=== PATIENT | male | born 1995 | race Two or more races ===

== ENCOUNTER 2016-04-27 06:24 | Emergency (ER) | payer BC ==
--- NOTE | 2016-04-27 07:29 | ER Document Report ---
HPI - HPI Patient complains to provider of: sore throat Pain Level: 3 Context: Patient is a 20-year-old male presents to the emergency department with sudden onset of sore throat and swollen uvula. Patient states that he was able to sleep last night but woke up this morning feeling like he was gagging. Patient states that he with the sternum and felt like his uvula is large than normal also states sore throat. Denies any difficulty breathing, chest pain, shortness of breath, wheezing, cough. Denies any previous cold symptoms throughout the week. Has had 6 exposure work. Did receive a flu shot this year. Past medical history significant to asthma and obstructive sleep apnea Social history denies any alcohol or drug use. Rare tobacco use PCP; Brett ANNE Skin Color: Normal Past Medical History - Social History Smoking Status: Current Some Day Smoker Chew tobacco use (# tins/day): No Frequency of alcohol use: None Drug Abuse: None Family History: Reviewed & Not Pertinent Patient has suicidal ideation: No Patient has homicidal ideation: No Renal/ Medical History: Denies: Hx Peritoneal Dialysis Vertical Provider Document - CONSTITUTIONAL Agree With Documented VS: Yes Exam Limitations: No Limitations General Appearance: WD/WN, No Apparent Distress - INFECTION CONTROL TRAVEL OUTSIDE OF THE [place] IN LAST 30 DAYS: No - HEENT HEENT: Atraumatic, Normocephalic, PERRLA. negative: Pharyngeal Exudate, Pharyngeal Tenderness, Pharyngeal Erythema, Tympanic Membrane Red, Tympanic Membrane Bulging Mouth Diagram: 1 - enlarged uvula Notes: No evidence of retropharyngeal or peritonsillar abscess. - NECK Neck: Normal Inspection. negative: Lymphadenopathy-Left, Lymphadenopathy-Right - RESPIRATORY Respiratory: Breath Sounds Normal, No Respiratory Distress, Chest Non-Tender. negative: Rales, Rhonchi, Wheezing O2 Sat by Pulse Oximetry: 97 - CARDIOVASCULAR Cardiovascular: Regular Rate, Regular Rhythm, No Murmur Pulses: Normal: Radial - GI/ABDOMEN Gastrointestinal: Abdomen Soft, Abdomen Non-Tender, No Organomegaly, Normal Bowel Sounds - MUSCULOSKELETAL/EXTREMETIES Musculoskeletal/Extremeties: MAEW, FROM, Non-Tender, No Edema. negative: Eccymosis - NEURO Level of Consciousness: Awake, Alert, Appropriate Motor/Sensory: No Motor Deficit, No Sensory Deficit - DERM Integumentary: Warm, Dry, No Rash Course - Re-evaluation Re-evalutation: 04/27/16 08:17 Patient is a 20-year-old male who presents emergency departments with throat and enlarged uvula. Patient is hemodynamically stable, no acute distress and afebrile. Soft tissue of the neck does not reveal any concern for epiglottitis. Patient's airway is patent no evidence of respiratory distress. Rapid strep is negative. Patient will be discharged home to follow-up with PCP - Vital Signs Vital signs: Temp Pulse Resp BP Pulse Ox 98.0 F 73 16 126/73 H 97 04/27/16 06:27 04/27/16 06:27 04/27/16 06:27 04/27/16 06:27 04/27/16 06:27 Discharge - Discharge Clinical Impression: Uvular swelling Condition: Good Disposition: HOME, SELF-CARE Instructions: Sore Throat ([facility]), Viral Syndrome ([facility]) Additional Instructions: Follow up with Dr. West as needed Forms: Return to Work
[2016-04-27 08:57] VITALS: BP 120/70
== END 2016-04-27 08:50 | disposition home or self-care (01) ==
LOC: ER 06:24
DX: R22.1 Localized swelling, mass and lump, neck (principal); J02.9 Acute pharyngitis, unspecified; F17.200 Nicotine dependence, unspecified, uncomplicated
CPT/HCPCS: 70360; 87070; 87880; 99283

== ENCOUNTER 2016-06-15 20:26 | Emergency (ER) | payer BC ==
[2016-06-15] MEDS ORDERED: IPRATROPIUM/ALBUTEROL 0.5-2.5 MG/3 ML AMPUL NEB ONE (20:35)
[2016-06-15] MEDS ORDERED: PREDNISONE 20 MG TABLET PO ONE (20:35)
[2016-06-15] MEDS: ALBUTEROL SULFATE 0.083% NEB 2.5 MG/3 ML AMPUL NEB SCH ×2 (21:07→22:10)
--- NOTE | 2016-06-15 22:34 | ER Document Report ---
ED Respiratory Problem - General Chief Complaint: Breathing Difficulty Stated Complaint: HARD TIME BREATHING,CHEST PAIN Notes: The patient is a 20-year-old male, past medical history asthma, current smoker, presents with 1 day of wheezing and mild shortness of breath. He does not have any albuterol Nebules at home. His last asthma exacerbation was several years ago. He denies chest pain, fevers, leg swelling, hemoptysis, back pain, nausea , vomiting or abdominal pain. TRAVEL OUTSIDE OF THE [place] IN LAST 30 DAYS: No - Related Data Allergies/Adverse Reactions: No Known Allergies Allergy (Verified 06/15/16 20:34) Past Medical History - General Information source: Patient - Social History Smoking Status: Current Every Day Smoker Family History: Reviewed & Not Pertinent Patient has suicidal ideation: No Patient has homicidal ideation: No Renal/ Medical History: Denies: Hx Peritoneal Dialysis Review of Systems - Review of Systems Notes: REVIEW OF SYSTEMS: CONSTITUTIONAL: -fevers, -chills EENT: -eye pain, -difficulty swallowing, -nasal congestion CARDIOVASCULAR:-chest pain, -syncope. RESPIRATORY: -cough, +SOB GASTROINTESTINAL: -abdominal pain, - nausea, -vomiting, -diarrhea GENITOURINARY: -dysuria, -hematuria MUSCULOSKELETAL: -back pain, -neck pain SKIN: -rash or skin lesions. HEMATOLOGIC: -easy bruising or bleeding. LYMPHATIC: -swollen, enlarged glands. NEUROLOGICAL: -altered mental status or loss of consciousness, -headache, - neurologic symptoms PSYCHIATRIC: -anxiety, -depression. ALL OTHER SYSTEMS REVIEWED AND NEGATIVE. Physical Exam - Vital signs Vitals: Temp Pulse Resp BP Pulse Ox 98.7 F 83 20 137/70 H 99 06/15/16 20:32 06/15/16 20:32 06/15/16 20:32 06/15/16 20:32 06/15/16 20:32 - Notes Notes: PHYSICAL EXAMINATION: GENERAL: Well-appearing, well-nourished and in no acute distress. HEAD: Atraumatic, normocephalic. EYES: Pupils equal round and reactive to light, extraocular movements intact, sclera anicteric, conjunctiva are normal. ENT: nares patent, oropharynx clear without exudates. Moist mucous membranes. NECK: Normal range of motion, supple without lymphadenopathy LUNGS: Breath sounds clear to auscultation bilaterally and equal. No wheezes rales or rhonchi. HEART: Regular rate and rhythm without murmurs ABDOMEN: Soft, nontender, normoactive bowel sounds. No guarding, no rebound. No masses appreciated. EXTREMITIES: Normal range of motion, no pitting or edema. No cyanosis. NEUROLOGICAL: Cranial nerves grossly intact. Normal speech, normal gait. Normal sensory, motor, and reflex exams. PSYCH: Normal mood, normal affect. SKIN: Warm, Dry, normal turgor, no rashes or lesions noted. Course - Re-evaluation Re-evalutation: After DuoNeb and steroids, patient feels much better and he is no longer short of breath. His lungs are completely clear and he is in no respiratory distress. Will send home patient with 4 more days of prednisone and a refill of his albuterol nebules with follow-up at his primary care physician. Given strict return precautions and he understands. - Vital Signs Vital signs: Temp Pulse Resp BP Pulse Ox 98.7 F 83 16 152/75 H 99 06/15/16 20:33 06/15/16 23:01 06/15/16 23:01 06/15/16 23:01 06/15/16 23:01 Discharge - Discharge Clinical Impression: Asthma exacerbation, mild Condition: Good Disposition: HOME, SELF-CARE Additional Instructions: ASTHMA: You have been diagnosed as having asthma. This is a condition where there is episodic tightness in the bronchial tubes. Allergies, infections, and polluted or cold air may be contributing factors. Emergency treatment of a severe asthma attack may include adrenaline shots , or bronchodilator aerosol. You may feel lightheaded, have a decreased exercise tolerance and a rapid pulse for an hour or two. Rest and get plenty of fluids. Home treatment of asthma requires bronchodilator drugs. These can be administered by injection, inhalation, or by mouth. Antibiotics and corticosteroids may be required for some patients. You should avoid chemical fumes, dusts, pollens, and exercising in very cold or dry air. If you smoke, stop!! If you develop a fever, increased wheezing, chest pain, or severe shortness of breath, you should contact the doctor immediately. STEROID MEDICATION: You have been given an injection of or oral medicine of the cortisone/ steroid class. This medication is used to control inflammation or allergy. Jani t is usually only given for a short period of time, until the acute process subsides. There are usually no side effects from short-term use of cortisone-like medications. Some persons feel an increased sense of well-being and are not sleepy at bedtime. Long-term use of cortisone medications is best avoided, unless required for a severe condition. If your condition does not remit, or relapses after the course of corticosteroid medication, you should consult your physician. INHALED BRONCHODILATORS: You have received treatment(s) of and/or prescription for an inhaled bronchodilator -- a medication which stimulates the airways in the lung to dilate. This improves the flow of air in asthma, bronchitis, and emphysema. These medicines have some similarity to adrenaline, and can cause similar side effects: shakiness, racing heart, and a sense of nervousness. These side effects decrease with time. Contact your doctor if these side effects are severe. Do not over-use the medicine. Too-frequent use of the inhaler may make it ineffective. Call your doctor if the inhaler is not controlling your symptoms at the prescribed doses. SMOKING: If you smoke, you should stop smoking. The tar and chemicals in cigarette smoke are harmful. Smoking has been shown to cause: emphysema chronic bronchitis lung cancer mouth and throat cancer stomach and pancreas cancer premature aging defects In addition, smoking increases ear and lung infections in children of smokers. USE OF ACETAMINOPHEN (Tylenol): Acetaminophen may be taken for pain relief or fever control. It's much safer than aspirin, offering a wider range of "safe" dosages. It is safe during . Some brand names are Tylenol, Panadol, Datril, Anacin 3, Tempra, and Liquiprin. Acetaminophen can be repeated every four hours. The following are maximum recommended dosages: WEIGHT Dose Drops Elixir Chewable( 80mg) (LBS.) drprs=droppers tsp=teaspoon 6 40 mg 0.4 ml (1/2) 6-11 80 mg 0.8 ml (full) tsp 1 tab 12-16 120 mg 1 1/2 drprs 3/4 tsp 1 1/2 tabs 17-23 160 mg 2 drprs 1 tsp 2 tabs 24-30 240 mg 3 drprs 1 1/2 tsp 3 tabs 30-35 320 mg 2 tsp 4 tabs 36-41 360 mg 2 1/4 tsp 4 1/2 tabs 42-47 400 mg 2 1/2 tsp 5 tabs 48-53 480 mg 3 tsp 6 tabs 54-59 520 mg 3 1/4 tsp 6 1/2 tabs 60-64 560 mg 3 1/2 tsp 7 tabs 65-70 600 mg 3 3/4 tsp 7 1/2 tabs 71-76 640 mg 4 tsp 8 tabs 77-82 720 mg 4 1/2 tsp 9 tabs 83-88 800 mg 5 tsp 10 tabs >89 pounds or adults 650 mg to 900 mg Acetaminophen can be repeated every four hours. Maximum dose not to exceed 4000 mg a day. These maximum recommended dosages are slightly higher than the dosages written on the product container, but these dosages are very safe and below the toxic dosage for acetaminophen. FOLLOW-UP CARE: If you have been referred to a physician for follow-up care, call the physician s office for an appointment as you were instructed or within the next two days. If you experience worsening or a significant change in your symptoms, notify the physician immediately or return to the Emergency Department at any time for re-evaluation. Prescriptions: Albuterol Sulfate [Albuterol Sulfate 2.5mg/3 mL] 1 vial IH Q4 PRN #30 vial PRN Reason: Prednisone [Deltasone 20 mg Tablet] 3 tab PO DAILY 4 Days
[2016-06-15 23:07] VITALS: BP 152/75
== END 2016-06-15 23:07 | disposition home or self-care (01) ==
LOC: ER 20:26
DX: J45.901 Unspecified asthma with (acute) exacerbation (principal); R06.00 Dyspnea, unspecified; R07.9 Chest pain, unspecified; F17.200 Nicotine dependence, unspecified, uncomplicated
CPT/HCPCS: 94640 ×2; 99284; J7512; J7620

== ENCOUNTER 2016-12-03 13:53 | Emergency (ER) | payer BC ==
[2016-12-03] MEDS ORDERED: PREDNISONE 20 MG TABLET PO ONE (15:36)
[2016-12-03] MEDS ORDERED: ALBUTEROL SULFATE 0.083% NEB 2.5 MG/3 ML AMPUL NEB ONE (15:36)
[2016-12-03] MEDS ORDERED: ALBUTEROL SULFATE HFA (90 MCG/PUFF) 8 GM MDI (1 MDI/ER DISP) IH ONE (15:36)
--- NOTE | 2016-12-03 15:37 | ER Document Report ---
ED Respiratory Problem - General Mode of Arrival: Ambulatory Information source: Patient TRAVEL OUTSIDE OF THE [place] IN LAST 30 DAYS: No - HPI Patient complains to provider of: Short of breath Onset: Other - 1 week ago Context: Hx asthma, Other - see notes above Chest pain/discomfort: Tightness At home treatment: Inhaled steroids Associated symptoms: Other - see notes above - General Chief Complaint: Breathing Difficulty Stated Complaint: DIFFICULTY BREATHING,COUGH Time Seen by Provider: 12/03/16 15:31 Notes: 21 year old male with history of asthma presents to the ED complaining of intermittent shortness of breath that started 1 week ago. Patient states that he has been using his albuterol inhaler often which helps temporarily, but his shortness of breath returns. Patient ran out of his inhaler medication while at work today and has started coughing since. Patient reports that previous inhaler use would help for longer periods of time than this past week. Patient is additionally complaining of chest tightness, and denies fever or rhinorrhea. (BONI CEJA) - Related Data Allergies/Adverse Reactions: No Known Allergies Allergy (Verified 06/15/16 20:34) Past Medical History - General Information source: Patient - Social History Smoking Status: Never Smoker Chew tobacco use (# tins/day): No Frequency of alcohol use: None Drug Abuse: None Family History: Reviewed & Not Pertinent Patient has suicidal ideation: No Pulmonary Medical History: Reports: Hx Asthma Renal/ Medical History: Denies: Hx Peritoneal Dialysis - Immunizations Hx Diphtheria, Pertussis, Tetanus Vaccination: No Review of Systems - Review of Systems Constitutional: No symptoms reported. denies: Fever EENT: No symptoms reported. denies: Nose discharge Cardiovascular: See HPI, Chest pain - tightness Respiratory: See HPI, Cough, Short of breath Gastrointestinal: No symptoms reported Genitourinary: No symptoms reported Male Genitourinary: No symptoms reported Musculoskeletal: No symptoms reported Skin: No symptoms reported Hematologic/Lymphatic: No symptoms reported Neurological/Psychological: No symptoms reported -: Yes All other systems reviewed and negative Physical Exam - General General appearance: Alert In distress: None - HEENT Head: Normocephalic, Atraumatic Eyes: Normal Extraocular movements intact: Yes Pupils: PERRL - Respiratory Respiratory status: No respiratory distress Breath sounds: Rhonchi - Diffuse rhonchi and squeaking with forced expiration - Cardiovascular Rhythm: Regular Heart sounds: Normal auscultation Murmur: No Friction rub: No Gallop: None auscultated - Extremities General upper extremity: Normal inspection, Normal ROM General lower extremity: Normal inspection, Normal ROM, Normal weight bearing - Neurological Neuro grossly intact: Yes Cognition: Normal Orientation: AAOx4 Shayy Coma Scale Eye Opening: Spontaneous Shayy Coma Scale Verbal: Oriented [place] Coma Scale Motor: Obeys Commands [place] Coma Scale Total: 15 Speech: Normal - Psychological Associated symptoms: Normal affect, Normal mood - Skin Skin Temperature: Warm Skin Moisture: Dry Skin Color: Normal - Vital signs Vitals: Temp Pulse Resp BP Pulse Ox 99.2 F 80 16 119/57 L 94 12/03/16 14:01 12/03/16 14:01 12/03/16 14:01 12/03/16 14:01 12/03/16 14:01 Course - Re-evaluation Re-evalutation: 12/03/16 16:27 Patient has mild wheezing, not in severe respiratory distress, no evidence of pneumonia, not hypoxic, patient will be treated with breathing treatment here, prescribed an albuterol inhaler and given an inhaler to go home with as well, started on steroids and discharged home. No indication for chest x-ray at this time. (ELVIA HOWARD) - Vital Signs Vital signs: Temp Pulse Resp BP Pulse Ox 98.6 F 86 16 147/75 H 99 12/03/16 17:18 12/03/16 17:18 12/03/16 17:18 12/03/16 17:18 12/03/16 17:18 Discharge - Discharge Clinical Impression: Acute asthma exacerbation Qualifiers: Asthma severity: mild Asthma persistence: intermittent Qualified Code(s): J45.21 - Mild intermittent asthma with (acute) exacerbation Condition: Stable Disposition: HOME, SELF-CARE Additional Instructions: Please use your inhaler 2 puffs every 4 hours as needed for wheezing. Please take the prednisone (a steroid) as directed until it is gone. Please return for fever, worsening cough or any new or concerning symptoms. Prescriptions: Albuterol Sulfate [Proair HFA Inhalation Aerosol 8.5 gm MDI] 2 puff IH Q4H PRN # 1 mdi PRN Reason: Prednisone [Deltasone 20 mg Tablet] 3 tab PO DAILY 5 Days tablet Forms: Return to Work Referrals: ALFONSO GERBER MD [Primary Care Provider] - Follow up as needed Scribe Attestation: 12/03/16 21:49 I personally performed the services described in the documentation, reviewed and edited the documentation which was dictated to the scribe in my presence, and it accurately records my words and actions. (ELVIA HOWARD) Scribe Documentation - Scribe Written by Ramiro:: Ramiro Thomas, 12/03/2016 1702 acting as scribe for :: Christian
[2016-12-03 17:26] VITALS: BP 147/75
== END 2016-12-03 17:19 | disposition home or self-care (01) ==
LOC: ER 13:53
DX: J45.21 Mild intermittent asthma with (acute) exacerbation (principal); R06.02 Shortness of breath; R05 Cough; R07.89 Other chest pain
CPT/HCPCS: 94640; 99284; J7512; J3490